=== PATIENT | male | born 2000 | race Caucasian/White ===

== ENCOUNTER 2020-08-31 14:26 | Emergency (ER) | payer OTHER ==
[2020-08-31] MEDS ORDERED: NORCO 5-325 TA1 EACH PO (15:55)
== END 2020-08-31 16:04 | disposition home or self-care (01) ==
LOC: FER 14:26
DX: T23.152A Burn of first degree of left palm, initial encounter (principal); Z23 Encounter for immunization; X15.0XXA Contact with hot stove (kitchen), initial encounter
CPT/HCPCS: 90471; 90715; J1885

== ENCOUNTER 2021-05-30 00:56 | Emergency (ER) | payer OTHER ==
[~2021-05-30 00:56] MED LIST: NORCO 5-325 TA1 EACH PO
[2021-05-30] MEDS ORDERED: ATARAX25 MG PO (02:21)
== END 2021-05-30 02:45 | disposition home or self-care (01) ==
LOC: FER 00:56
DX: L51.9 Erythema multiforme, unspecified (principal); F17.200 Nicotine dependence, unspecified, uncomplicated
CPT/HCPCS: 99282